=== PATIENT | male | born 1940 | race Caucasian/White ===

== ENCOUNTER 2019-06-19 09:28 | Outpatient (CLI) | payer OTHER | END 2019-06-19 15:36 | disposition home or self-care (01) | LOC: TOM 09:28 | DX: J43.2 Centrilobular emphysema (principal); J84.112 Idiopathic pulmonary fibrosis; R06.02 Shortness of breath; Z01.811 Encounter for preprocedural respiratory examination; C18.2 Malignant neoplasm of ascending colon; D37.4 Neoplasm of uncertain behavior of colon; Z86.010 Personal history of colon polyps ==